=== PATIENT | female | born 1965 | race Caucasian/White ===

== ENCOUNTER 2018-01-26 05:37 | Emergency (ER) | payer OTHER ==
[~2018-01-26 05:37] MED LIST: ALBU.5I NEB; CARD240C6 PO; CIPR500T4 PO; COZA100T PO; DIFL150T PO; METO100T9 PO; OMEP20CA5 PO
[2018-01-26 06:00] VITALS: BP 163/90; PULSE 110; RESP 14; TEMP 98.3; O2SAT 98
[2018-01-26] MEDS ORDERED: LOSA100T PO (06:12)
[2018-01-26] MEDS ORDERED: METO1TAB43 PO (06:12)
[2018-01-26] MEDS ORDERED: DILT240C44 PO (06:12)
[2018-01-26] MEDS ORDERED: PRIL20TA2 PO (06:12)
[2018-01-26] MEDS ORDERED: VENTAER INH (06:12)
[2018-01-26] MEDS ORDERED: SODIUM CHLORIDE 0.9% FLUSH 10 ML FLUSH IVF PRN (06:15)
[2018-01-26] MEDS ORDERED: ASPIRIN 81 MG CHEW TAB CHEW ONE (06:15)
[2018-01-26 06:29] VITALS: BP 138/79; PULSE 92; RESP 18; O2SAT 98
--- NOTE | 2018-01-26 06:45 | RADRPT ---
EXAM DATE/TIME: 01/26/2018 06:18 [facility] COMPARISON: No previous studies available for comparison. INDICATIONS : Chest pain. MEDICAL HISTORY : Asthma. SURGICAL HISTORY : None. ENCOUNTER: Initial ACUITY: 1 day PAIN SCORE: 5/10 LOCATION: Bilateral chest FINDINGS: A single view of the chest demonstrates the lungs to be symmetrically aerated without evidence of mas s, infiltrate or effusion. The cardiomediastinal contours are unremarkable. Osseous structures are intact. CONCLUSION: No acute disease. Flako Tompkins MD on January 26, 2018 at 6:42 Board Certified Radiologist. This report was verified electronically.
[2018-01-26 06:51] LABS: AUTOMATED NEUTROPHIL # 4.2 TH/MM3 (1.8-7.7); BASOPHIL % 0.6 % (0.0-2.0); EOSINOPHIL # 0.1 TH/MM3 (0-0.4); EOSINOPHIL % 2.1 % (0.0-4.0); HEMATOCRIT 42.5 % (35.0-46.0); HEMOGLOBIN 14.5 GM/DL (11.6-15.3); LYMPH % 24.9 % (9.0-44.0); LYMPHOCYTE # 1.6 TH/MM3 (1.0-4.8); MEAN CORPUSCULAR HEMOGLOBIN 32.1 PG (27.0-34.0); MEAN CORPUSCULAR HGB CONC 34.2 % (32.0-36.0); MEAN PLATELET VOLUME 7.3 FL (7.0-11.0); MONO % 6.4 % (0.0-8.0); MONOCYTE # 0.4 TH/MM3 (0-0.9); PLATELET COUNT 256 TH/MM3 (150-450); RED BLOOD COUNT 4.52 MIL/MM3 (4.00-5.30); WHITE BLOOD COUNT 6.3 TH/MM3 (4.0-11.0)
[2018-01-26 06:52] LABS: CHLORIDE 100 MEQ/L (98-107); SODIUM (NA) 134 MEQ/L (136-145)
[2018-01-26 06:55] LABS: BICARBONATE 24.8 MEQ/L (21.0-32.0); BLOOD UREA NITROGEN 8 MG/DL (7-18); CALCIUM 9.1 MG/DL (8.5-10.1); GLUCOSE,RANDOM 316 MG/DL (74-106); MAGNESIUM 1.8 MG/DL (1.5-2.5)
[2018-01-26 06:58] LABS: CREATININE 0.61 MG/DL (0.50-1.00); GLOMERULAR FILTRATION RATE 103 ML/MIN (>89)
[2018-01-26 07:03] LABS: TROPONIN I LESS THAN 0.02 NG/ML (0.02-0.05)
[2018-01-26 07:04] LABS: PROTHROMBIN TIME - PATIENT 10.4 SEC (9.8-11.6)
[2018-01-26 07:05] VITALS: BP 152/84; PULSE 89; RESP 16; O2SAT 98
[2018-01-26 07:07] LABS: D-DIMER LESS THAN 0.19 MG/L FEU (0.00-0.50)
--- NOTE | 2018-01-26 07:34 | EKG ---
Date Performed: 01/26/2018 Time Performed: 05:54:55 PTAGE: 52 years EKG: Sinus rhythm NORMAL ECG PREVIOUS TRACING : 12/09/2012 06.33 DOCTOR: Jose Raul Westbrook Interpretating Date/Time 01/26/2018 07:32:40
[2018-01-26] MEDS ORDERED: METF500 PO (07:36)
--- NOTE | 2018-01-26 07:36 | PD ---
HPI Chief Complaint: Cardiac Complaint Time Seen by Provider: 07:09 Travel History International Travel<30 days: No Contact w/Intl Traveler<30days: No Traveled to known affect area: No History of Present Illness HPI This 52-year-old female says she woke up this morning and her heart was going fast. She thinks of going about 150. This lasted about an hour. She came to the hospital and it actually stopped just when she got here. She did not have any chest pain. She does get a little bit short of breath. She has had some trouble like this in the past and saw Dr. Ortiz in the past though she has not seen them for several years. She is currently on metoprolol, Cardizem CD and losarten. he says that she takes her medications as directed. She does say that the past few weeks she has been under a lot of stress. She has been caring for her mother who has cancer. She does smoke. She has no history of diabetes though she did recall that she had a relieved reading of about 200 about a year ago. She has had some weight loss and polyuria and polydipsia. He has had some trouble with a potassium in the past and has had some cramping in her legs. PFSH Past Medical History Asthma: Yes Anxiety: Yes Heart Rhythm Problems: Yes (SVT) Cardiovascular Problems: Yes (HTN) High Cholesterol: Yes Diminished Hearing: No GERD: Yes Hypertension: Yes Respiratory: Yes (ASTHMA) Ulcer: Yes Influenza Vaccination: Yes ?: Not Menopausal: Yes : 1 Para: 1 Past Surgical History Gynecologic Surgery: Yes (BLADDER SUSPENSION, LUMPECTOMY (L)) Hysterectomy: Yes Social History Alcohol Use: Yes (BEER DAILY) Tobacco Use: Yes (1 PPD) Substance Use: No Allergies-Medications (Allergen,Severity, Reaction): Coded Allergies: latex (Unverified Allergy, Severe, INTERNAL LATEX ALLERGY, 01/26/18) morphine (Unverified Allergy, Intermediate, ITCHING, 01/26/18) Reported Meds & Prescriptions Reported Meds & Active Scripts Active Reported Prilosec (Omeprazole Magnesium) 20 Mg Tab 1 Cap PO DAILY Metoprolol Succinate ER 24 HR (Metoprolol Succinate) 100 Mg Tab 100 Mg PO DAILY Losartan (Losartan Potassium) 100 Mg Tab 100 Mg PO DAILY Diltiazem CD 24 HR 240 Mg Caper 240 Mg PO DAILY Ventolin Hfa 18 GM Inh (Albuterol Sulfate) 90 Mcg/Act Aer 2 Puff INH Q4H PRN Review of Systems General / Constitutional: Positive: Weight Loss, No: Fever, Chills Eyes: No: Diploplia, Blurred Vision HENT: No: Headaches, Vertigo Cardiovascular: Positive: Palpitations, Tachycardia, No: Chest Pain or Discomfort Respiratory: No: Cough, Shortness of Breath Gastrointestinal: No: Nausea, Vomiting Genitourinary: No: Urgency, Frequency Musculoskeletal: No: Myalgias Neurologic: No: Weakness Psychiatric: No: Anxiety Endocrine: No: Heat Intolerance Hematologic/Lymphatic: No: Easy Bruising Physical Exam Narrative GENERAL: Well-developed female SKIN: Focused skin assessment warm/dry. HEAD: Atraumatic. Normocephalic. EYES: Pupils equal and round. No scleral icterus. No injection or drainage. ENT: No nasal bleeding or discharge. Mucous membranes pink and moist. NECK: Trachea midline. No JVD. CARDIOVASCULAR: Regular rate and rhythm. No murmur appreciated. RESPIRATORY: No accessory muscle use. Clear to auscultation. Breath sounds equal bilaterally. GASTROINTESTINAL: Abdomen soft, non-tender, nondistended. Hepatic and splenic margins not palpable. MUSCULOSKELETAL: No obvious deformities. No clubbing. No cyanosis. No edema. NEUROLOGICAL: Awake and alert. No obvious cranial nerve deficits. Motor grossly within normal limits. Normal speech. PSYCHIATRIC: Appropriate mood and affect; insight and judgment normal. Data Data Last Documented VS Vital Signs Date Time Temp Pulse Resp B/P (MAP) Pulse Ox O2 Delivery O2 Flow Rate FiO2 01/26/18 06:29 92 18 138/79 (98) 98 Room Air 01/26/18 06:00 98.3 Orders Orders Electrocardiogram (01/26/18 06:09) Basic Metabolic Panel (Bmp) (01/26/18 06:09) B-Type Natriuretic Peptide (01/26/18 06:09) Ckmb (Isoenzyme) Profile (01/26/18 06:09) Complete Blood Count With Diff (01/26/18 06:09) D-Dimer (01/26/18 06:09) Magnesium (Mg) (01/26/18 06:09) Prothrombin Time / Inr (Pt) (01/26/18 06:09) Act Partial Throm Time (Ptt) (01/26/18 06:09) Troponin I (01/26/18 06:09) Ecg Monitoring (01/26/18 06:09) Bilateral Bp Monitoring (01/26/18 06:09) Iv Access Insert/Monitor (01/26/18 06:09) Oximetry (01/26/18 06:09) Oxygen Administration (01/26/18 06:09) Sodium Chloride 0.9% Flush (Ns Flush) (01/26/18 06:15) Aspirin Chew (Aspirin Chew) (01/26/18 06:15) Chest, Single Ap (01/26/18 06:09) Thyroid Stimulating Hormone (01/26/18 07:16) Labs Laboratory Tests Test 01/26/18 06:20 White Blood Count 6.3 TH/MM3 Red Blood Count 4.52 MIL/MM3 Hemoglobin 14.5 GM/DL Hematocrit 42.5 % Mean Corpuscular Volume 94.0 FL Mean Corpuscular Hemoglobin 32.1 PG Mean Corpuscular Hemoglobin Concent 34.2 % Red Cell Distribution Width 11.0 % Platelet Count 256 TH/MM3 Mean Platelet Volume 7.3 FL Neutrophils (%) (Auto) 66.0 % Lymphocytes (%) (Auto) 24.9 % Monocytes (%) (Auto) 6.4 % Eosinophils (%) (Auto) 2.1 % Basophils (%) (Auto) 0.6 % Neutrophils # (Auto) 4.2 TH/MM3 Lymphocytes # (Auto) 1.6 TH/MM3 Monocytes # (Auto) 0.4 TH/MM3 Eosinophils # (Auto) 0.1 TH/MM3 Basophils # (Auto) 0.0 TH/MM3 CBC Comment DIFF FINAL Differential Comment Prothrombin Time 10.4 SEC Prothromb Time International Ratio 1.0 RATIO Activated Partial Thromboplast Time 25.7 SEC D-Dimer Quantitative (PE/DVT) LESS THAN 0.19 MG/L FEU Blood Urea Nitrogen 8 MG/DL Creatinine 0.61 MG/DL Random Glucose 316 MG/DL Calcium Level 9.1 MG/DL Magnesium Level 1.8 MG/DL Sodium Level 134 MEQ/L Potassium Level 3.7 MEQ/L Chloride Level 100 MEQ/L Carbon Dioxide Level 24.8 MEQ/L Anion Gap 9 MEQ/L Estimat Glomerular Filtration Rate 103 ML/MIN Total Creatine Kinase 31 U/L Troponin I LESS THAN 0.02 NG/ML B-Type Natriuretic Peptide 7 PG/ML MDM Medical Decision Making Medical Screen Exam Complete: Yes Emergency Medical Condition: Yes Medical Record Reviewed: Yes Differential Diagnosis Differential includes atrial fibrillation, SVT, sinus tach, electrolyte imbalance, pulmonary embolus Narrative Course Chest x-ray is negative. Troponin is normal. D-dimer is less than 0.19. BNP is 7. EKG shows normal sinus rhythm. Of note her blood sugars is 316. She has not been diabetic before. She did not eat prior to coming here she does not eat a lot of sweets. I think she should be started on her thighs. 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 She is to follow -up with her primary care physician Diagnosis Primary Impression: Hyperglycemia Additional Impression: Palpitations Scripts Metformin (Glucophage) 500 Mg Tab 500 MG PO BIDPC for Blood Sugar Management, #60 TAB 0 Refills Prov: Juan Arroyo MD 01/26/18 Disposition: 01 DISCHARGE HOME Condition: Stable Juan Arroyo MD Jan 26, 2018 07:36
== END 2018-01-26 07:59 | disposition home or self-care (01) ==
LOC: PHED 05:37
DX: R73.9 Hyperglycemia, unspecified (principal); R00.2 Palpitations; R63.4 Abnormal weight loss; R35.8 Other polyuria; R63.1 Polydipsia; J45.909 Unspecified asthma, uncomplicated; I47.1 Supraventricular tachycardia; I10 Essential (primary) hypertension; K21.9 Gastro-esophageal reflux disease without esophagitis
CPT/HCPCS: 71045; 80048; 82550; 83735; 83880; 84443; 84484; 85025; 85379; 85610; 85730; 93005; 99285

== ENCOUNTER 2018-02-17 15:45 | Emergency (ER) | payer OTHER ==
[~2018-02-17 15:45] MED LIST changes: -ALBU.5I NEB; -CARD240C6 PO; -CIPR500T4 PO; -COZA100T PO; -DIFL150T PO; +DILT240C44 PO; +LOSA100T PO; +METF500 PO; -METO100T9 PO; +METO1TAB43 PO; -OMEP20CA5 PO; +PRIL20TA2 PO; +VENTAER INH
[2018-02-17 15:46] VITALS: BP 161/86; PULSE 79; RESP 20; TEMP 99.3; O2SAT 98
[2018-02-17] MEDS ORDERED: SODIUM CHLORIDE 0.9% FLUSH 10 ML FLUSH IVF PRN (16:00)
--- NOTE | 2018-02-17 16:04 | PD ---
HPI Chief Complaint: Cardiac Complaint Time Seen by Provider: 15:55 Travel History International Travel<30 days: No Contact w/Intl Traveler<30days: No Traveled to known affect area: No History of Present Illness HPI 52 -year-old female patient presents to the ER today because she states that she started having palpitations today that are intermittent in nature. She states that they last several minutes at a time and she has had about 10 of them today. She admits that it gets better with calming down. She has been very stressed out because her mother is on hospice. She has had some shortness of breath as well but denies any fevers, vomiting, or other symptoms. Modifying Factors: None Associated Signs & Symptoms: Palpitations Risk Factors:none PFSH Past Medical History Asthma: Yes Anxiety: Yes Heart Rhythm Problems: Yes (SVT) Cardiovascular Problems: Yes (HTN) High Cholesterol: Yes Diabetes: Yes Patient Takes Glucophage: Yes Diminished Hearing: No GERD: Yes Hypertension: Yes Respiratory: Yes (ASTHMA) Ulcer: Yes ?: Not Menopausal: Yes : 1 Para: 1 Past Surgical History Gynecologic Surgery: Yes (BLADDER SUSPENSION, LUMPECTOMY (L)) Hysterectomy: Yes Social History Alcohol Use: Yes (BEER DAILY) Tobacco Use: Yes (1 PPD) Substance Use: No Allergies-Medications (Allergen,Severity, Reaction): Coded Allergies: latex (Unverified Allergy, Severe, INTERNAL LATEX ALLERGY, 01/26/18) morphine (Unverified Allergy, Intermediate, ITCHING, 01/26/18) Reported Meds & Prescriptions Reported Meds & Active Scripts Active Glucophage (Metformin HCl) 500 Mg Tab 500 Mg PO BIDPC Reported Prilosec (Omeprazole Magnesium) 20 Mg Tab 1 Cap PO DAILY Metoprolol Succinate ER 24 HR (Metoprolol Succinate) 100 Mg Tab 100 Mg PO DAILY Losartan (Losartan Potassium) 100 Mg Tab 100 Mg PO DAILY Diltiazem CD 24 HR 240 Mg Caper 240 Mg PO DAILY Ventolin Hfa 18 GM Inh (Albuterol Sulfate) 90 Mcg/Act Aer 2 Puff INH Q4H PRN Review of Systems Except as stated in HPI: all other systems reviewed are Neg Physical Exam Narrative GENERAL: Well-developed middle-aged female patient currently in mild distress. Awake and oriented x3. SKIN: Focused skin assessment warm/dry. HEAD: Atraumatic. Normocephalic. EYES: Pupils equal and round. No scleral icterus. No injection or drainage. ENT: No nasal bleeding or discharge. Mucous membranes pink and moist. NECK: Trachea midline. No JVD. CARDIOVASCULAR: Regular rate and rhythm. No murmur appreciated. RESPIRATORY: No accessory muscle use. Clear to auscultation. Breath sounds equal bilaterally. GASTROINTESTINAL: Abdomen soft, non-tender, nondistended. Hepatic and splenic margins not palpable. MUSCULOSKELETAL: No obvious deformities. No clubbing. No cyanosis. No edema. NEUROLOGICAL: Awake and alert. No obvious cranial nerve deficits. Motor grossly within normal limits. Normal speech. PSYCHIATRIC: Appropriate mood and affect; insight and judgment normal. Data Data Last Documented VS Vital Signs Date Time Temp Pulse Resp B/P (MAP) Pulse Ox O2 Delivery O2 Flow Rate FiO2 02/17/18 17:39 77 16 135/80 (98) 98 Room Air 02/17/18 15:46 99.3 Orders Orders Electrocardiogram (02/17/18 15:56) Complete Blood Count With Diff (02/17/18 15:56) Comprehensive Metabolic Panel (02/17/18 15:56) Magnesium (Mg) (02/17/18 15:56) Troponin I (02/17/18 15:56) Chest, Single Ap (02/17/18 15:56) Ecg Monitoring (02/17/18 15:56) Iv Access Insert/Monitor (02/17/18 15:56) Oximetry (02/17/18 15:56) Sodium Chloride 0.9% Flush (Ns Flush) (02/17/18 16:00) Ed Discharge Order (02/17/18 17:52) Labs Laboratory Tests Test 02/17/18 16:05 White Blood Count 9.6 TH/MM3 Red Blood Count 4.60 MIL/MM3 Hemoglobin 14.6 GM/DL Hematocrit 43.4 % Mean Corpuscular Volume 94.2 FL Mean Corpuscular Hemoglobin 31.8 PG Mean Corpuscular Hemoglobin Concent 33.8 % Red Cell Distribution Width 11.0 % Platelet Count 325 TH/MM3 Mean Platelet Volume 8.0 FL Neutrophils (%) (Auto) 64.4 % Lymphocytes (%) (Auto) 25.6 % Monocytes (%) (Auto) 6.4 % Eosinophils (%) (Auto) 1.8 % Basophils (%) (Auto) 1.8 % Neutrophils # (Auto) 6.1 TH/MM3 Lymphocytes # (Auto) 2.5 TH/MM3 Monocytes # (Auto) 0.6 TH/MM3 Eosinophils # (Auto) 0.2 TH/MM3 Basophils # (Auto) 0.2 TH/MM3 CBC Comment DIFF FINAL Differential Comment Blood Urea Nitrogen 9 MG/DL Creatinine 0.56 MG/DL Random Glucose 186 MG/DL Total Protein 8.4 GM/DL Albumin 4.1 GM/DL Calcium Level 9.8 MG/DL Magnesium Level 1.8 MG/DL Alkaline Phosphatase 171 U/L Aspartate Amino Transf (AST/SGOT) 40 U/L Alanine Aminotransferase (ALT/SGPT) 107 U/L Total Bilirubin 0.4 MG/DL Sodium Level 134 MEQ/L Potassium Level 3.6 MEQ/L Chloride Level 100 MEQ/L Carbon Dioxide Level 26.1 MEQ/L Anion Gap 8 MEQ/L Estimat Glomerular Filtration Rate 113 ML/MIN Troponin I LESS THAN 0.02 NG/ML MDM Medical Decision Making Medical Screen Exam Complete: Yes Emergency Medical Condition: Yes Medical Record Reviewed: Yes Interpretation(s) EKG shows NSR, no ST elevation or depression, and no arrhythmias. No significant T-wave inversions. No signs of QT prolongation or delta waves. Laboratory Tests Test 02/17/18 16:05 Red Cell Distribution Width 11.0 % (11.6-17.2) Random Glucose 186 MG/DL (74-106) Total Protein 8.4 GM/DL (6.4-8.2) Alkaline Phosphatase 171 U/L (45-117) Aspartate Amino Transf (AST/SGOT) 40 U/L (15-37) Alanine Aminotransferase (ALT/SGPT) 107 U/L (10-53) Sodium Level 134 MEQ/L (136-145) Troponin I LESS THAN 0.02 NG/ML Last 24 hours Impressions Chest X-Ray 02/17/18 2001 Signed Impressions: Service Date/Time: January 16:08 - CONCLUSION: Normal examination. Jose Raul Acosta MD Differential Diagnosis Intermittent palpitations: Dysrhythmias versus anxiety attack versus metabolic issues Narrative Course Lab work did not show significant metabolic issues. She does have some mild liver enzyme elevations which have been seen in the past with previous labs as well. Patient has been notified of the liver enzyme elevations. EKG did not show any significant dysrhythmias. Vital signs are stable in the ER. She was on monitors in the ER for 2 hours and did not show any signs of events although she did state that she had an episode of palpitation and she thinks may have had an PVC during that time. At this point, my plan would be to release her with follow-up to primary care doctor. Return for any worsening in symptoms as necessary. The plan has been discussed with her and she states understanding. Diagnosis Primary Impression: Palpitations Disposition: 01 DISCHARGE HOME Condition: Stable Mely Cheng MD Feb 17, 2018 16:04
[2018-02-17 16:13] VITALS: RESP 16; O2SAT 97
--- NOTE | 2018-02-17 16:22 | RADRPT ---
EXAM DATE/TIME: 02/17/2018 16:08 [facility] COMPARISON: CHEST SINGLE AP, January 26, 2018, 6:18. INDICATIONS : Chest pain and racing heart feeling. MEDICAL HISTORY : Diabetes mellitus type II. SURGICAL HISTORY : None. ENCOUNTER: Initial ACUITY: 1 day PAIN SCORE: 3/10 LOCATION: Bilateral chest FINDINGS: A single view of the chest demonstrates the lungs to be symmetrically aerated without evidence of mas s, infiltrate or effusion. The cardiomediastinal contours are unremarkable. Osseous structures are intact. CONCLUSION: Normal examination. Jose Raul Acosta MD on February 17, 2018 at 16:20 Board Certified Radiologist. This report was verified electronically.
[2018-02-17 16:28] VITALS: BP 124/79; PULSE 78; RESP 18; O2SAT 99
[2018-02-17 16:56] LABS: AUTOMATED NEUTROPHIL # 6.1 TH/MM3 (1.8-7.7); BASOPHIL # 0.2 TH/MM3 (0-0.2); BASOPHIL % 1.8 % (0.0-2.0); EOSINOPHIL # 0.2 TH/MM3 (0-0.4); EOSINOPHIL % 1.8 % (0.0-4.0); HEMATOCRIT 43.4 % (35.0-46.0); HEMOGLOBIN 14.6 GM/DL (11.6-15.3); LYMPH % 25.6 % (9.0-44.0); LYMPHOCYTE # 2.5 TH/MM3 (1.0-4.8); MEAN CELL VOLUME 94.2 FL (80.0-100.0); MEAN CORPUSCULAR HEMOGLOBIN 31.8 PG (27.0-34.0); MEAN CORPUSCULAR HGB CONC 33.8 % (32.0-36.0); MONO % 6.4 % (0.0-8.0); MONOCYTE # 0.6 TH/MM3 (0-0.9); NEUT % 64.4 % (16.0-70.0); PLATELET COUNT 325 TH/MM3 (150-450); WHITE BLOOD COUNT 9.6 TH/MM3 (4.0-11.0)
[2018-02-17 17:11] LABS: CHLORIDE 100 MEQ/L (98-107); SODIUM (NA) 134 MEQ/L (136-145)
[2018-02-17 17:14] LABS: CALCIUM 9.8 MG/DL (8.5-10.1)
[2018-02-17 17:15] LABS: ALBUMIN 4.1 GM/DL (3.4-5.0); BICARBONATE 26.1 MEQ/L (21.0-32.0); BLOOD UREA NITROGEN 9 MG/DL (7-18); GLUCOSE,RANDOM 186 MG/DL (74-106); MAGNESIUM 1.8 MG/DL (1.5-2.5)
[2018-02-17 17:18] LABS: ALT (GPT) 107 U/L (10-53); AST (GOT) 40 U/L (15-37); CREATININE 0.56 MG/DL (0.50-1.00); GLOMERULAR FILTRATION RATE 113 ML/MIN (>89)
[2018-02-17 17:19] LABS: TOTAL BILIRUBIN ADULT 0.4 MG/DL (0.2-1.0); TOTAL PROTEIN 8.4 GM/DL (6.4-8.2)
[2018-02-17 17:21] LABS: ALKALINE PHOSPHATASE 171 U/L (45-117)
[2018-02-17 17:23] LABS: TROPONIN I LESS THAN 0.02 NG/ML (0.02-0.05)
[2018-02-17 17:39] VITALS: BP 135/80; PULSE 77; RESP 16; O2SAT 98
--- NOTE | 2018-02-18 13:44 | EKG ---
Date Performed: 02/17/2018 Time Performed: 15:57:25 PTAGE: 52 years EKG: Sinus rhythm NORMAL ECG PREVIOUS TRACING : 01/26/2018 05.54 Since the previous tracing, no significant change noted DOCTOR: Werner Nobles Interpretating Date/Time 02/18/2018 13:42:29
== END 2018-02-17 18:03 | disposition home or self-care (01) ==
LOC: PHED 15:45
DX: R00.2 Palpitations (principal); R06.02 Shortness of breath; J45.909 Unspecified asthma, uncomplicated; F41.9 Anxiety disorder, unspecified; I47.1 Supraventricular tachycardia; I10 Essential (primary) hypertension; E78.00 Pure hypercholesterolemia, unspecified; E11.9 Type 2 diabetes mellitus without complications; K21.9 Gastro-esophageal reflux disease without esophagitis
CPT/HCPCS: 71045; 80053; 83735; 84484; 85025; 93005; 99285